=== PATIENT | male | born 1980 ===

== ENCOUNTER 2018-05-23 22:50 | Emergency (ER) | payer OTHER ==
[2018-05-23 23:38] VITALS: BP 137/83; PULSE 80; RESP 16; TEMP 97.7; O2SAT 98
[2018-05-24] MEDS ORDERED: DiphenhydrAMINE 12.5 mg/5 ml LIQ UD (5 ml) PO STA (00:12)
--- NOTE | 2018-05-24 00:26 | C.PDOC ---
History Of Present Illness 38 year old male presents to the emergency department with complaints of swelling, redness, and irritation to his bilateral sides of his scalp. Patient reports using hair dye yesterday and waking up with these symptoms today. Time Seen by Provider: 05/24/18 00:04 Chief Complaint (Nursing): Abnormal Skin Integrity History Per: Patient History/Exam Limitations: no limitations Onset/Duration Of Symptoms: Days (1) Current Symptoms Are (Timing): Still Present Location Of Injury: Right: Head, Left: Head Quality Of Symptoms: Swollen, Other (redness, irritation) Past Medical History Reviewed: Historical Data, Nursing Documentation, Vital Signs Vital Signs: Last Vital Signs Temp 97.7 F 05/23/18 23:36 Pulse 80 05/23/18 23:36 Resp 16 05/23/18 23:36 BP 137/83 05/23/18 23:36 Pulse Ox 98 05/23/18 23:36 - Medical History PMH: No Chronic Diseases Denies: Chronic Kidney Disease Surgical History: No Surg Hx Family History: States: No Known Family Hx - Social History Hx Alcohol Use: No Hx Substance Use: No - Immunization History Hx Tetanus Toxoid Vaccination: No Hx Influenza Vaccination: No Hx Pneumococcal Vaccination: No Review Of Systems Constitutional: Negative for: Fever, Chills, Weakness Eyes: Negative for: Redness, Other (scleral icterus) ENT: Negative for: Mouth Swelling Cardiovascular: Negative for: Chest Pain Respiratory: Negative for: Cough, Shortness of Breath Gastrointestinal: Negative for: Nausea, Vomiting, Diarrhea Genitourinary: Negative for: Dysuria, Hematuria Musculoskeletal: Negative for: Back Pain Skin: Positive for: Other (swelling, redness, irritation to scalp) Neurological: Negative for: Weakness, Numbness, Dizziness Physical Exam - Physical Exam Appears: Non-toxic, No Acute Distress Skin: Warm, Dry, Other (erythema, swelling to the sides of the head bilaterally. No hives. No angio-edema.) Head: Atraumatic, Normacephalic, Swelling Eye(s): bilateral: Normal Inspection, PERRL, EOMI Nose: Normal Oral Mucosa: Moist Neck: Normal, Supple Chest: Symmetrical, No Tenderness Cardiovascular: Rhythm Regular, No Murmur Respiratory: Normal Breath Sounds, No Rales, No Rhonchi, No Wheezing Gastrointestinal/Abdominal: Soft, No Tenderness, No Guarding, No Rebound Extremity: Normal ROM Neurological/Psych: Oriented x3, Normal Speech ED Course And Treatment O2 Sat by Pulse Oximetry: 98 (RA) Pulse Ox Interpretation: Normal Medical Decision Making Medical Decision Making: Plan: Benadryl 25mg PO Prednisone 60mg PO Disposition Counseled Patient/Family Regarding: Diagnosis, Need For Followup, Rx Given - Disposition Disposition: HOME/ ROUTINE Disposition Time: 00:26 Condition: STABLE Prescriptions: Prednisone [Deltasone] 40 mg PO DAILY #6 tablet Instructions: Contact Dermatitis (DC) Forms: [employer] (Telugu), General Discharge Instructions - Clinical Impression Clinical Impression: Contact allergic reaction - PA / [employer] / Resident Statement MD/DO has reviewed & agrees with the documentation as recorded. - Scribe Statement The provider has reviewed the documentation as recorded by the Scribe (Jaspreet Reynoso) All medical record entries made by the Scribe were at my direction and pers onally dictated by me. I have reviewed the chart and agree that the record accurately reflects my personal performance of the history, physical exam, medical decision making, and the department course for this patient. I have also personally directed, reviewed, and agree with the discharge instructions and disposition.
== END 2018-05-24 00:30 | disposition home or self-care (01) ==
LOC: C.ER 22:50
DX: T78.40XA Allergy, unspecified, initial encounter (principal); X58.XXXA Exposure to other specified factors, initial encounter